=== PATIENT | male | born 1955 | race Caucasian/White ===

== ENCOUNTER 2022-05-22 20:31 | Emergency (ER) | payer OTHER ==
[2022-05-22] MEDS ORDERED: Ketorolac 60 MG/2 ML SDV IM ONE (22:01)
== END 2022-05-23 00:15 | disposition home or self-care (01) ==
LOC: JD.ED 20:31
DX: M25.511 Pain in right shoulder (principal); M54.2 Cervicalgia; M79.641 Pain in right hand; M25.551 Pain in right hip; M25.561 Pain in right knee; W00.0XXA Fall on same level due to ice and snow, initial encounter; Y92.89 Other specified places as the place of occurrence of the external cause; Y99.0 Civilian activity done for income or pay
CPT/HCPCS: 72100; 73030; 73503; 73562; 96372; 99283; J1885; 72020; 99282